=== PATIENT | male | born 1950 | race Caucasian/White ===

== ENCOUNTER 2018-12-09 11:04 | Emergency (ER) | payer OTHER ==
[2018-12-09] MEDS ORDERED: LORazepam 2 MG/ML INJ IVP ONE ×2 (11:58)
--- NOTE | 2018-12-09 12:17 | EDPHY ---
H & P Time Seen by Provider: 12/09/18 11:47 HPI/ROS: CHIEF COMPLAINT: "I need to calm down" HISTORY OF PRESENT ILLNESS: 68-year-old man does have history of pulmonary embolism in the past. He has been under lot of stress as his has been hospitalized as an inpatient in [place] for the last 5 weeks for depression, and just recently got home. He has been under lot of stress feeling like she " needs more care than I can provide" and today presents by EMS with his son. His son says that his father started having a panic attack at home. The patient says he feels like his chest is tight but does not have trouble breathing, he is tearful and feels very very anxious. He feels just with no energy and like his whole body is drained. REVIEW OF SYSTEMS: Eye: no change in vision ENT: no sore throat Cardiac: HPI no palpitations or syncope. No pain in his chest. Pulmonary: HPI no coughing or hemoptysis Abdomen: no vomiting, diarrhea, abdominal pain Musculoskeletal: no back pain Skin: no rash Neuro: no headache Constitutional: no fever : no urinary symptoms A comprehensive 10 point review of systems is otherwise negative aside from elements mentioned in the history of present illness. PAST MEDICAL HISTORY: Includes hypercholesterolemia and pulmonary embolism, no longer on warfarin Social history: Here with his son General Appearance: Alert and conversant, cooperative. Eyes: No scleral icterus. ENT, Mouth: Normal mucous membranes. Respiratory: Normal respiratory effort, breath sounds equal, lungs are clear to auscultation. Tachypneic. Cardiovascular: Regular rate and rhythm. Gastrointestinal: Abdomen is soft and non tender. Neurological: Alert, face symmetric, normal motor and sensory in extremities. Skin: Warm and dry, no rashes. Musculoskeletal: No peripheral edema. Psychiatric: Very anxious, tearful, the hesitant with his words. Emergency Department course/MDM: EKG labs reviewed, no acute ischemic changes and negative D-dimer. Low pretest probability for recurrent pulmonary embolism. More likely acute panic attack anxiety and hyperventilation. IV Ativan x2. 1255: Feels better, eating a sandwich, normal conversant. Offered case management assistance, declined. Ambulatory with son at discharge. Smoking Status: Never smoked Constitutional: Initial Vital Signs Temperature (C) 36.5 C 12/09/18 11:16 Heart Rate 75 12/09/18 11:16 Respiratory Rate 26 H 12/09/18 11:16 Blood Pressure 152/88 H 12/09/18 11:16 O2 Sat (%) 97 12/09/18 11:16 O2 Delivery Mode Room Air Allergies/Adverse Reactions: No Known Allergies Allergy (Unverified 10/09/15 05:40) Home Medications: Medication Instructions Recorded Enoxaparin [Lovenox 80 MG (*)] 80 mg SC Q12 #14 syr 10/13/15 Warfarin Sodium [Coumadin 7.5MG 7.5 mg PO DAILY16 #0 tab 10/13/15 (*)] oxyCODONE IR [Oxycodone Ir (*)] 5 - 10 mg PO Q4 PRN #30 tab 10/13/15 Medical Decision Making - Diagnostics EKG Interpretation: 12-lead EKG interpreted by me; official reading is in computer system. My interpretation is sinus rhythm rate 72 with no ischemic changes. Differential Diagnosis: Differential diagnosis considered for shortness of breath including but not limited to panic attack hyperventilation or anxiety, pulmonary infectious process, COPD, asthma, pulmonary embolus and congestive heart failure. - Data Points Laboratory Results: Laboratory Results 12/09/18 11:05 12/09/18 11:05 12/09/18 12/09/18 12/09/18 11:05 11:05 11:05 WBC 7.44 10^3/uL 10^3/uL (3.80-9.50) RBC 6.57 10^6/uL H 10^6/uL (4.40-6.38) Hgb 17.6 g/dL H g/dL (13.7-17.5) Hct 52.3 % H % (40.0-51.0) MCV 79.6 fL L fL (81.5-99.8) MCH 26.8 pg L pg (27.9-34.1) MCHC 33.7 g/dL g/dL (32.4-36.7) RDW 13.2 % % (11.5-15.2) Plt Count 258 10^3/uL 10^3/uL (150-400) MPV 9.8 fL fL (8.7-11.7) Neut % (Auto) 34.4 % L % (39.3-74.2) Lymph % (Auto) 52.3 % H % (15.0-45.0) [place] % (Auto) 10.6 % % (4.5-13.0) Eos % (Auto) 1.7 % % (0.6-7.6) Baso % (Auto) 0.7 % % (0.3-1.7) Nucleat RBC Rel Count 0.0 % % (0.0-0.2) Absolute Neuts (auto) 2.56 10^3/uL 10^3/uL (1.70-6.50) Absolute Lymphs (auto) 3.89 10^3/uL H 10^3/uL (1.00-3.00) Absolute Monos (auto) 0.79 10^3/uL 10^3/uL (0.30-0.80) Absolute Eos (auto) 0.13 10^3/uL 10^3/uL (0.03-0.40) Absolute Basos (auto) 0.05 10^3/uL 10^3/uL (0.02-0.10) Absolute Nucleated RBC 0.00 10^3/uL 10^3/uL (0-0.01) Immature Gran % 0.3 % % (0.0-1.1) Immature Gran # 0.02 10^3/uL 10^3/uL (0.00-0.10) PT 12.9 SEC SEC (12.0-15.0) INR 0.95 (0.83-1.16) D-Dimer 0.29 ug/mLFEU ug/mLFEU (0.00-0.50) Sodium 139 mEq/L mEq/L (135-145) Potassium 4.2 mEq/L mEq/L (3.5-5.2) Chloride 107 mEq/L mEq/L (97-110) Carbon Dioxide 22 mEq/l mEq/l (22-31) Anion Gap 10 mEq/L mEq/L (6-14) BUN 18 mg/dL mg/dL (7-23) Creatinine 1.0 mg/dL mg/dL (0.7-1.3) Estimated GFR > 60 Glucose 94 mg/dL mg/dL (70-100) Calcium 9.8 mg/dL mg/dL (8.5-10.4) Medications Given: Discontinued Medications Lorazepam (Ativan Injection) 1 mg IVP EDNOW ONE Stop: 12/09/18 11:59 Last Admin: 12/09/18 12:16 Dose: Not Given Lorazepam (Ativan Injection) 1 mg IVP EDNOW ONE Stop: 12/09/18 11:59 Last Admin: 12/09/18 12:15 Dose: 1 mg Departure - Departure Disposition: Home, Routine, Self-Care Clinical Impression: Hyperventilation, Panic attack Condition: Good Instructions: Hyperventilation (ED), Panic Attack (ED) Referrals: [facility] ,. [Edm Groups for Call Sched] - As per Instructions
[2018-12-09 12:31] LABS: PLATELET COUNT 258 10^3/uL (150-400)
[2018-12-09 12:35] LABS: INR 0.95 (0.83-1.16); PROTIME(PATIENT) 12.9 SEC (12.0-15.0)
--- NOTE | 2018-12-09 12:40 | CPEKG ---
Test Reason : OPEN Blood Pressure : / mmHG Vent. Rate : 072 BPM Atrial Rate : 072 BPM P-R Int : 134 ms QRS Dur : 103 ms QT Int : 392 ms P-R-T Axes : 062 056 009 degrees QTc Int : 430 ms Sinus rhythm Minimal ST elevation, anterior leads Confirmed by Nazario Le ([id number]) on 12/09/2018 12:40:09 PM Referred By: NAZARIO LE Confirmed By:Nazario Le
[2018-12-09 13:39] VITALS: BP 130/78
== END 2018-12-09 13:58 | disposition home or self-care (01) ==
LOC: EDUNIT#
DX: F41.0 Panic disorder [episodic paroxysmal anxiety] (principal); R06.4 Hyperventilation
CPT/HCPCS: 93005; 96374; 99284; J2060